=== PATIENT | female | born 1975 ===

== ENCOUNTER 2022-03-03 13:07 | Emergency (ER) | payer MEDICAID, OTHER ==
[2022-03-03] MEDS ORDERED: hydrALAZINE 20 MG/1 ML INJ IV ONE ×2 (13:31→16:54)
--- NOTE | 2022-03-03 13:43 | Emergency Department Report ---
HPI - General Chief Complaint: High BP Time Seen by Provider: 03/03/22 13:15 - HPI HPI: For the last 4 days the patient has been having a headache that she refers to her bilateral temples and it is about a 7 out of 10 that came in insidiously. She is been taking Motrin for this and today the headache got worse. The headache is like a pressure and currently moderate. She also had at work an episode of anxiety with worsening of this episodic intermittent left anterior nonradiating sharp-like left presternal moderate pain that she is been getting for the last 4 days. With this she felt near syncopal and felt to her left knee. She is uncertain if she lost consciousness but she did not hit the floor with her rest of the body. EMS was called who found the patient very hypertensive at 270/130. The patient reports she did comply with her usual h ypertensive medications today. She denies nausea vomiting fever chills focal weakness or any other associated symptoms. ED Past Medical Hx - Past Medical History Previous Medical History?: Yes Hx Hypertension: Yes Hx CVA: Yes (TIA) - Medications Home Medications: Home Medications Medication Instructions Recorded Confirmed Last Taken Type amLODIPine 10 mg PO DAILY 30 Days #30 tab 03/03/22 Unknown Rx traMADoL [Ultram 50 MG tab] 50 mg PO Q6HR PRN 7 Days #12 tablet 03/03/22 Unknown Rx ED Review of Systems ROS: Stated complaint: CHESTPAIN,HYPERTENSION Other details as noted in HPI Comment: All other systems reviewed and negative Physical Exam - Physical Exam Vital Signs: Vital Signs 03/03/22 13:13 Temperature 98.4 F Pulse Rate 104 H Respiratory 16 Rate Blood Pressure 220/110 [Right] O2 Sat by Pulse 98 Oximetry Physical Exam: Physical Exam: Constitutional: AAOX3. No acute distress. No diaphoresis. HENT: Normocephalic. Pupils equal and reactive. No throat edema or erythema. Neck: No neck rigidity or tenderness. Cardiovascular: Heart sounds: No murmur. Normal rate and regular rhythm. Pulses: Intact distal pulses. Lungs: No wheezing or rales. Chest wall: No tenderness. Abdominal: No distension. No mass/pulsatile mass. No abdominal tenderness, guarding nor rebound. Musculoskeletal: Normal range of motion. No edema, No calf TTP. Skin: Warm and dry. Neurological: Alert and oriented to person, place, and time. NIH stroke scale equals 0. Psychiatric: Mood and affect normal. Normal cognition and memory. Normal judgement. ED Course Vital Signs 03/03/22 13:13 Temperature 98.4 F Pulse Rate 104 H Respiratory 16 Rate Blood Pressure 220/110 [Right] O2 Sat by Pulse 98 Oximetry - Reevaluation(s) Reevaluation #1: 03/03/22 14:38 EKG done interpreted at 1425 shows a rate of 100, tachycardia. The rhythm is sinus tachycardia. There is probable left atrial enlargement and LVH with secondary repolarization normality. Reevaluation #2: 03/03/22 16:[address] of the brain and chest x-ray were within normal limits. I did 2 serial troponins that were negative. The patient did not have any more chest pain throughout her stay in the emergency department. However her blood pressu re was elevated. She takes and reports good compliance with 100 mg of losartan, 25 mg of hydrochlorothiazide and 50 mg of metoprolol daily. Because her blood pressure Being elevated here I will place her on 10 mg of amlodipine daily and she will follow up with her PCP as soon as possible. ED Medical Decision Making - Lab Data Result diagrams: 03/03/22 13:58 03/03/22 Unknown Critical care attestation.: If time is entered above; I have spent that time in minutes in the direct care of this critically ill patient, excluding procedure time. ED Disposition Clinical Impression: Chest pain, Headache, Hypertension Disposition: 01 HOME / SELF CARE / HOMELESS Is pt being admited?: No Does the pt Need Aspirin: No Condition: Stable Instructions: Nonspecific Chest Pain, Adult, Hypertension (ED), Managing Your Hypertension Prescriptions: amLODIPine 10 mg PO DAILY 30 Days #30 tab traMADoL [Ultram 50 MG tab] 50 mg PO Q6HR PRN 7 Days #12 tablet PRN Reason: Pain Time of Disposition: 17:00 Print Language: TANZANIAN
--- NOTE | 2022-03-03 14:13 | XRay Report ---
CHEST 1 VIEW 03/03/2022 1:22 PM INDICATION / CLINICAL INFORMATION: Chest Pain. COMPARISON: None available. FINDINGS: SUPPORT DEVICES: None. HEART / MEDIASTINUM: No significant abnormality. LUNGS / PLEURA: No significant pulmonary or pleural abnormality. No pneumothorax. ADDITIONAL FINDINGS: No significant additional findings. IMPRESSION: No acute abnormality. Signer Name: Jm Chowdary MD Signed: 03/03/2022 2:08 PM Workstation Name: [id number]
[2022-03-03 14:18] LABS: Basophils # (Auto) 0.1 K/mm3 (0.0-0.1); Basophils % (Auto) 1.6 % (0.0-1.8); Eosinophils # (Auto) 0.2 K/mm3 (0.0-0.4); Eosinophils % (Auto) 2.5 % (0.0-4.3); Hematocrit 31.8 % (30.3-42.9); Hemoglobin 10.5 gm/dl (10.1-14.3); Lymphocytes # (Auto) 1.9 K/mm3 (1.2-5.4); Lymphocytes % (Auto) 24.7 % (13.4-35.0); Mean Corpuscular HGB Conc 33 % (30-34); Monocytes # (Auto) 0.8 K/mm3 (0.0-0.8); Monocytes % (Auto) 10.4 % (0.0-7.3); Red Blood Count 5.28 M/mm3 (3.65-5.03)
[2022-03-03 14:20] LABS: Mean Corpuscular Volume 60 fl (79-97); Platelet Count 362 K/mm3 (140-440); Red Cell Distribution Width 20.9 % (13.2-15.2)
--- NOTE | 2022-03-03 14:28 | Cat Scan Report ---
CT head/brain wo con INDICATION / CLINICAL INFORMATION: 46 years Female; Hypertensive headache. TECHNIQUE: Routine CT head without contrast. All CT scans at this location are performed using CT dos e reduction for ALARA by means of automated exposure control. COMPARISON: None. FINDINGS: BRAIN / INTRACRANIAL CONTENTS: The brain parenchyma appears to demonstrate appropriate attenuation. T he ventricular system is within normal limits in size and configuration. There is incidental dense ca lcification along the falx. There is no clear CT evidence of acute intracranial hemorrhage or signifi cant mass effect. ORBITS: No significant abnormality of visualized orbits. SINUSES / MASTOIDS: No significant abnormality in the visualized paranasal sinuses or mastoid air dg ls. CRANIOCERVICAL JUNCTION: No significant abnormality. ADDITIONAL FINDINGS: None. IMPRESSION: 1. There is no CT evidence of acute intracranial process. All Signer Name: Jaden Dey MD Signed: 03/03/2022 2:24 PM Workstation Name: [id number]
--- NOTE | 2022-03-03 15:47 | XRay Report ---
Left knee-3 views INDICATION: Trauma. COMPARISON: None available. IMPRESSION: No acute osseous abnormality. Normal alignment. No significant DJD. Soft tissues are u nremarkable. Signer Name: Seng Haskins MD Signed: 03/03/2022 3:42 PM Workstation Name: [id number]
[2022-03-03 16:43] LABS: Alanine Aminotransferase 13 units/L (7-56); Albumin 4.2 g/dL (3.9-5); Blood Urea Nitrogen 12 mg/dL (7-17); Calcium 10.1 mg/dL (8.4-10.2); Hemolysis Index 12
[2022-03-03 16:46] LABS: BUN/Creatinine Ratio 17
[2022-03-03] MEDS ORDERED: amLODIPine 5 MG TAB PO ONE (16:55)
[2022-03-03 17:51] VITALS: BP 166/75
--- NOTE | 2022-03-05 20:02 | Electrocardiograph Report ---
[facility] Test Date: 2022-03-03 Test Time: 14:25:09 Pat Name: FRANK RICHEY Department: Room: Gender: F [employer]: GP : [id number] Requested By: ELYSIA RAYA Order Number: [id number] Reading MD: Vi Howard Measurements Intervals [place] Rate: 100 P: 57 RI: 187 QRS: -4 QRSD: 96 T: 89 QT: 323 QTc: 418 Interpretive Statements Sinus tachycardia Probable left atrial enlargement LVH with secondary repolarization abnormality No previous ECG available for comparison Electronically Signed On 03-05-2022 20:02:10 EDT by Vi Howard
== END 2022-03-03 17:51 | disposition home or self-care (01) ==
LOC: ED 13:07
DX: R07.9 Chest pain, unspecified (principal); R51.9 Headache, unspecified; I10 Essential (primary) hypertension; Z86.73 Personal history of transient ischemic attack (TIA), and cerebral infarction without residual deficits; Z79.899 Other long term (current) drug therapy
CPT/HCPCS: 36415; 70450; 71045; 73562; 80053; 83880; 84484; 85025; 93005; 96374; 96376; 99285; J0360